=== PATIENT | male | born 1945 | race Caucasian/White ===

== ENCOUNTER 2016-10-31 09:33 | Observation (INO) ==
[2016-10-31] MEDS ORDERED: METOPROLOL TARTRATE 5 MG/5 ML VIAL IV STA (10:01)
[2016-10-31] MEDS ORDERED: ENOXAPARIN 100 MG/ML SYRINGE SUBCUT STA (10:01)
[2016-10-31] MEDS ORDERED: ASPIRIN 325 MG TABLET PO STA (10:01)
[2016-10-31] MEDS ORDERED: NITROGLYCERIN 2% OINT 1 INCH/GM PACK TOP STA (10:01)
[2016-10-31] MEDS ORDERED: NITROGLYCERIN SL 0.4 MG TABLET SL PRN ×2 (10:01→13:01)
[2016-10-31] MEDS ORDERED: ONDANSETRON 4 MG/2 ML VIAL IV PRN (10:01)
[2016-10-31] MEDS ORDERED: MORPHINE 2 MG/1 ML SYRINGE IV PRN (10:01)
--- NOTE | 2016-10-31 10:05 | EKG Report ---
Stationary ECG Study [facility] ER Test Date: 10/31/2016 9:39:57 AM Pat Name: BRADLY MARSH Department: Room: Gender: M Tool Designer: Rupali Singletary : 1945 Requested by: Rad Greer Order Number: [id number] Reading MD: EDDIE MCCULLOUGH Intervals [place] Rate: 80 P: 69 IA: 240 QRS: 99 QRSD: 85 T: 77 QT: 352 QTc: 388 Interpretive Statements SINUS RHYTHM WITH FIRST DEGREE AV BLOCK RIGHT AXIS DEVIATION Electronically Signed On 10-31-16 15:41:27 CDT by EDDIE MCCULLOUGH [email or web address]
--- NOTE | 2016-10-31 10:19 | Emergency Department Note ---
Aman Roberts Hilary, am scribing for, and in the presence of, Rad Pedroza MD 10: 10. Kasia Roberts James D, MD, personally performed the services described in this documentation, ascribed by Jazmín Newton in my presence, and it is both accurate and complete . Arrival - Arrival Chief Complaint: Chest Pain Stated Complaint: Chest pain,shortbreath, weakness left arm ED Nursing Triage Note: C/o intermittent, left side chest pain-onset yesterday afternoon. +SOB. Denies N/V and diaphoresis. Denies pain at this time. Mode of Arrival: Ambulatory Limitations: No Limitations Source: Patient, RN Notes Reviewed Time Seen by Provider: 10/31/16 09:56 - History of Present Illness HPI Narrative: Pt is a 71 y/o white male presenting to the ED with c/o chest pain which onset yesterday. He confirms left sided chest pain, left arm numbness and SOB but denies abdominal pain, N/V or diaphoresis. He states that the past few weeks he has been SOB upon exertion which has gotten increasingly worse. Pt has a PMHx of CAD, HTN, Stent x2, TIA, and NIDDM. No other complaints or problems stated in the ED. Onset (ago): day(s) Consistency: now resolved Severity: moderate Severity scale (1-10): 3 Quality: sharp Allergies/Adverse Reactions: Allergies Allergy/AdvReac Type Severity Reaction Status Date / Time sulfamethoxazole Allergy Intermediate Hypertensio Verified 06/06/15 06:28 [From Bactrim] n trimethoprim [From Bactrim] Allergy Intermediate Hypertensio Verified 06/06/15 06:28 n Penicillins Allergy Mild HIVES Verified 06/06/15 06:28 Home Medications: Home Medications Medication Instructions Recorded Confirmed Type Clopidogrel [Plavix] 75 mg PO DAILY 06/06/15 10/31/16 History Ezetimibe [Zetia] 10 mg PO DAILY 06/06/15 10/31/16 History Metformin HCl 1,000 mg PO BID 06/06/15 10/31/16 History Aspirin [Ecotrin] 81 mg PO DAILY 07/11/15 10/31/16 History Carvedilol [Coreg] 6.25 mg PO BID #60 tablet 07/12/15 10/31/16 Rx Famotidine Tab [Pepcid Tab] 20 mg PO BID #60 tablet 07/12/15 10/31/16 Rx Nitroglycerin Sl Tab [Nitrostat] 0.4 mg SL Q5M PRN #0 tablet 07/12/15 10/31/16 Rx Lisinopril [Prinivil] 20 mg PO DAILY 10/31/16 10/31/16 History Review of System - Review of System 12 point system: reviewed and no additional remarkable complaints except as stated - Review of System Constitutional: Absent: fever Respiratory: Present: respiratory distress (SOB) Cardiovascular: Present: chest pain Gastrointestinal: Absent: abdominal pain, nausea, vomiting Musculoskeletal: Present: arm pain (left arm numbness) Medical,Surgical,& Family Hx - Medical History Cardio: History of: CAD, Hypertension, Cardiovascular Problems (stent times 2 to lad) Neurology: History of: TIA No history of: Seizures Endocrine: History of: Diabetes Mellitus (NIDDM) Gastrointestinal: History of: GERD Musculoskeletal: History of: Musculoskeletal Problems (arthritis) - Surgical History Cardiac Surgeries: Sugical HX of: Cardiac Catheterization (PCI of the proximal LAD) - Family History Family History: Reports;: Family Hypertension Denies;: Family Cancer, Family Diabetes, Family Heart Disease, Family Psychiatric Problems, Family Stroke - Social History Smoking Status: Former smoker (2 pks a day/ 10 years ago) Frequency of Alcohol Use: None Type of Drug Use: None Exam Physical Examination: GENERAL: This is a well-nourished, well-developed in no apparent distress. VITAL SIGNS: Temperature: 97.6 Pulse: 81 Respiratory: 18 Blood Pressure: 167/ 90 O2 Sat: 98 HEENT: Head is normocephalic and atraumatic. Pupils are equally round and reactive to light. Extraocular movement are intact. Oropharynx is benign with moist mucous membranes. NECK: Neck is soft and supple without tenderness. There are no masses. There is no lymphadenopathy. LUNGS: Lungs are clear to auscultation bilaterally. Chest rises symmetrically. There is no chest wall tenderness. CV: Heart is regular rate and rhythm without murmurs, rubs, or gallops. ABDOMEN: Abdomen is soft, non-tender to palpation. There are no abnormal masses palpated. There is no organomegaly. Bowel sounds are present and active. SKIN: Skin is warm and dry. No rash. EXTREMITIES: Patient has full range of motion without tenderness. There is no pedal edema. NEUROLOGIC: Awake, alert, and oriented x4. Cranial nerves II through XII are grossly intact. There are no motorsensory deficits. PSYCHIATRIC: Normal affect. Normal mood. Vital Signs: Vital Signs Temperature 97.6 F 10/31/16 10:12 Pulse Rate 69 10/31/16 11:00 Respiratory Rate 18 10/31/16 11:00 Blood Pressure 144/78 10/31/16 11:00 O2 Sat by Pulse Oximetry 100 10/31/16 11:00 Course - Consultations Consultation #1: Discussed with cardiology. Patient will be seen in the emergency department. Time: 11:07 Results - Labs CBC & BMP: 10/31/16 10:14 10/31/16 10:14 Lab Results: I have reviewed the patients labs Labs: Laboratory Tests 10/31/16 10/31/16 10:14 10:14 WBC 8.5 RBC 4.75 Hgb 14.9 Hct 41.5 L Plt Count 269 Lymph % (Auto) 14.2 L Lymph # (Auto) 1.2 L INR 1.1 PT Patient/Control Mix 11.3 Circ Anticoag PTT 24.0 Laboratory Tests 10/31/16 10:14 Troponin I < 0.015 Laboratory Tests 10/31/16 10:14 Sodium 143 Potassium 3.9 Chloride 108 H Carbon Dioxide 26 BUN 11 Glucose 156 H Total Protein 7.4 - EKG EKG results: interpreted by ERMD - Impressions EKG: Normal sinus rhythm with first-degree AV block, right axis deviation, nonspecific ST-T wave changes. - Diagnostic Findings Procedure: Chest x-ray: image reviewed by me, report reviewed by me (No acute cardiopulmonary process. Parenchymal and pleural scarring in the lung apices) Disposition Clinical Impression: Unstable angina, Coronary artery disease, Essential hypertension, Diabetes mellitus Case discussed with: patient, patient's family Disposition: Still a Patient Condition: Stable Time of Disposition: 11:07
[2016-10-31 10:28] LABS: Basophils % 0.4 % (0.0-0.8); Eosinophils # 0.1 10*3/uL (0.0-0.87); Eosinophils % 1.5 % (0.00-10.9); Hematocrit 41.5 VOL% (42.0-52.0); Hemoglobin 14.9 GM/DL (14.0-18.0); Immature Granulocytes % 0.5 %; Immature Granulocytes Absolute 0.04 #; Lymphocytes # 1.2 10*3/uL (1.4-4.0); Lymphocytes % 14.2 % (21.2-54.2); Mean Corpuscular HGB Conc 35.9 GM/DL (32-36); Mean Corpuscular Hemoglobin 31 PG (27-34); Mean Corpuscular Volume 87.4 FL (87-102); Mean Platelet Volume 9.9 FL (9.6-12.0); Monocytes # 0.8 10*3/uL (0.11-0.8); Monocytes % 9.6 % (1.7-12.7); Neutrophils # 6.3 10*3/uL (1.4-7.4); Neutrophils % 73.8 % (38.7-73.9); Platelet Count 269 T/CUMM (130-400); Red Blood Count 4.75 MC/CUMM (3.8-5.5); Red Cell Distribution Width 13.2 % (9.3-17.3); White Blood Count 8.5 T/CUMM (4-12)
--- NOTE | 2016-10-31 10:29 | XRay Report ---
History: Chest pain Date: 10/31/2016 Study: Chest x-ray PA and lateral Comparison exam: July 21, 2015 The cardiac silhouette is not enlarged. There is no mediastinal mass. The pulmonary vasculature is not engorged. There is some mild parenchymal and pleural scarring in either lung apex. There is no definite acute infiltrate. There is no pleural effusion. Osseous structures are unchanged. Impression: No acute cardiopulmonary process. Parenchymal and pleural scarring in the lung apices PROCEDURE INTERPRETED AT [facility] DEPARTMENT OF RADIOLOGY Final Report Signed by: Dr. Jaelyn Silver
[2016-10-31 10:34] LABS: INR 1.1; PT Patient Result 11.3 SECS
[2016-10-31 11:01] LABS: Albumin 4.1 G/DL (3.4-5.0); Magnesium 1.8 MG/DL (1.8-2.4); Potassium 3.9 MMOL/L (3.5-5.1); Total Protein 7.4 G/DL (6.4-8.3)
[2016-10-31] MEDS ORDERED: ASPIRIN 325 MG TABLET ONE (11:05)
[2016-10-31] MEDS ORDERED: METOPROLOL TARTRATE 5 MG/5 ML VIAL IV ONE (11:05)
[2016-10-31] MEDS ORDERED: NITROGLYCERIN 2% OINT 1 INCH/GM PACK TOP ONE (11:05)
[2016-10-31] MEDS ORDERED: ENOXAPARIN 100 MG/ML SYRINGE SUBCUT ONE (11:05)
[2016-10-31] MEDS ORDERED: ACETAMINOPHEN 325 MG TABLET PO ONE (11:50)
[2016-10-31] MEDS ORDERED: ACETAMINOPHEN 325 MG TABLET ONE (11:53)
[2016-10-31] MEDS ORDERED: MAGNESIUM SULF RIDER 2 GM in PREMIX 1 EACH IV PRN (12:35)
[2016-10-31] MEDS ORDERED: DOCUSATE SODIUM 100 MG CAPSULE PO PRN (12:35)
[2016-10-31] MEDS ORDERED: MAGNESIUM SULF RIDER 4 GM in PREMIX 1 EACH IV PRN (12:35)
[2016-10-31] MEDS ORDERED: ZALEPLON 5 MG CAPSULE PO PRN (12:35)
--- NOTE | 2016-10-31 12:55 | Cardiology History & Physical ---
<Tricia Ballard E - Last Filed: 10/31/16 12:42> Assessment and Plan - Time spent with patient Time spent with patient: Greater than 30 minutes Time spent discussing smoking cessation with patient: 3 to 10 minutes (1) Tobacco abuse, in remission Status: Resolved Assessment and plan: SEE PLAN OF CARE LISTED BELOW Current Visit: Yes (2) Diabetes Status: Chronic Assessment and plan: SEE PLAN OF CARE LISTED BELOW Current Visit: No Qualifiers: Diabetes mellitus type: type 2 Diabetes mellitus complication status: without complication Qualified Code(s): E11.9 - Type 2 diabetes mellitus without complications (3) Dyslipidemia Status: Chronic Assessment and plan: SEE PLAN OF CARE LISTED BELOW Current Visit: No (4) Hypertension Status: Chronic Assessment and plan: SEE PLAN OF CARE LISTED BELOW Current Visit: No (5) Chest pain Status: Resolved Assessment and plan: SEE PLAN OF CARE LISTED BELOW Current Visit: No (6) CAD (coronary artery disease) Status: Chronic Assessment and plan: SEE PLAN OF CARE LISTED BELOW Current Visit: No Qualifiers: Coronary Disease-Associated Artery/Lesion type: [place] artery [place] vs. 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 Aguilera, 71WM, routinely followed by Dr. Mccullough. Last seen in cardiology clinic August 05, 2016. Risk factors include: Known CAD (2015: PCI-ostial /proximal LAD and mid LAD), hypertension, dyslipidemia, diabetes, remote tobaccoism, CVA, and family history of premature coronary artery disease. Patient presented to the ED of [facility] this morning with complaints of chest discomfort, shortness of breath with exertion occurring for the past 3-4 weeks, now worsening in intensity, frequency and duration. Describes chest discomfort as "heaviness across chest" without radiation, accompanied by shortness of breath. For the past 2-3 days, walking room to room causes these symptoms, rest relieves the discomfort after approximately 5 minutes. Not associated with nausea, vomiting or diaphoresis. Rates the discomfort as a 7 on a scale of 1-10, currently chest pain-free. These symptoms are similar to the same type of symptoms he had prior to requiring PCI June 2015. Cardiac biomarkers are negative, EKG is unchanged from August 05, 2016 EKG. Patient has received Aspirin, Lovenox 90 mg SQ at 10 AM, beta-blockade and nitrates. He is NPO. I will further discuss with Dr. Solis and await additional recommendations. Suspect patient may require cardiac catheterization so I will keep him NPO at this time. ASSESSMENT/PLAN: 1. ANGINA - currently chest pain-free. This is not NSTEMI. Has received appropriate cocktail of medications. Keeping NPO for further orders 2. KNOWN CAD - S/P PCI ostial/proximal LAD, mid-LAD June 2015. Continue Aspirin and Plavix without interruption 3. HYPERTENSION - usually well controlled. I will adjust medications accordingly during hospital stay 4. DYSLIPIDEMIA - continue lipid-lowering agent. Fasting lipid profile in the morning. 5. DIABETES - holding Metformin and will cover with sliding scale 6. REMOTE TOBACCOISM - greater than 5 minutes was spent today discussing the continued merits of tobacco cessation (has not smoked in 10 years). 7. FAMILY HISTORY OF PREMATURE CAD - continue current plan of care 8. CVA FEBRUARY 2017 -etiology undetermined, carotid ultrasound normal. Previously saw Dr. Christianson. No reoccurrence. Home Medications Medication Instructions Recorded Confirmed Type Clopidogrel [Plavix] 75 mg PO DAILY 06/06/15 10/31/16 History Ezetimibe [Zetia] 10 mg PO DAILY 06/06/15 10/31/16 History Metformin HCl 1,000 mg PO BID 06/06/15 10/31/16 History Aspirin [Ecotrin] 81 mg PO DAILY 07/11/15 10/31/16 History Carvedilol [Coreg] 6.25 mg PO BID #60 tablet 07/12/15 10/31/16 Rx Famotidine Tab [Pepcid Tab] 20 mg PO BID #60 tablet 07/12/15 10/31/16 Rx Nitroglycerin Sl Tab [Nitrostat] 0.4 mg SL Q5M PRN #0 tablet 07/12/15 10/31/16 Rx Lisinopril [Prinivil] 20 mg PO DAILY 10/31/16 10/31/16 History Allergies Allergy/AdvReac Type Severity Reaction Status Date / Time sulfamethoxazole Allergy Intermediate Hypertensio Verified 06/06/15 06:28 [From Bactrim] n trimethoprim [From Bactrim] Allergy Intermediate Hypertensio Verified 06/06/15 06:28 n Penicillins Allergy Mild HIVES Verified 06/06/15 06:28 Review of systems: REVIEW OF SYSTEMS: - Constitutional Constitutional: Present: Fatigue. Absent: syncope, anorexia, night sweats - EENT Eyes: Absent: blurry vision, loss of vision, diplopia Ears: Absent: ear pain, ear discharge. Present: Mild hearing loss - Cardiovascular Cardiovascular: Present: chest pain with exertion, dyspnea on exertion. Denies edema, palpitations. Absent: chest pain with deep breath, claudication - Respiratory Respiratory: Present: RODRIGUEZ, denies cough. Absent: wheezing, hemoptysis, change in phlegm color - Gastrointestinal Gastrointestinal: Denies: constipation. Absent: abdominal pain, hematemesis, hematochezia, melena, change in bowel habits, nausea - Genitourinary Genitourinary: Absent: difficulty urinating, dysuria, urinary hesitancy, flank pain - Musculoskeletal Musculoskeletal: Present: back pain, left shoulder and arm pain and numbness. Absent: joint swelling, muscle cramps, muscle weakness - Neurological Neurological: Present: normal gait without frequent falls. Absent: dizziness, hemiparesis - Psychiatric Psychiatric: Absent: anxiety, depression, difficulty concentrating - Endocrine Endocrine: Absent: cold intolerance, heat intolerance, polyuria, polyphagia, polydipsia - Hematologic/Lymphatic Hematologic/Lymphatic: Present: easy bruising. Absent: easy bleeding -Integumentary Integumentary: Absent: lesions, rashes, skin breakdown Medical,Surgical,& Family Hx - Medical History Cardio: History of: CAD, Hypertension, Cardiovascular Problems (stent times 2 to lad) No history of: Cardiac Dysrhythmia Neurology: History of: TIA No history of: Seizures Endocrine: History of: Diabetes Mellitus (NIDDM) Gastrointestinal: History of: GERD Musculoskeletal: History of: Musculoskeletal Problems (arthritis) - Surgical History Cardiac Surgeries: Sugical HX of: Cardiac Catheterization (PCI of the proximal LAD) - Family History Family History: Reports;: Family Hypertension Denies;: Family Cancer, Family Diabetes, Family Heart Disease, Family Psychiatric Problems, Family Stroke - Social History Smoking Status: Former smoker (2 pks a day/ 10 years ago) Have you smoked in the last 12 months: No Time spent discussing smoking cessation with patient: 3 to 10 minutes Frequency of Alcohol Use: None Type of Drug Use: None Functional capacity: uses cane/walker Cardiology Physical Exam - Constitutional Vitals: Vital Signs Temp Pulse Resp BP Pulse Ox 97.6 F 69 27 H 130/81 100 10/31/16 10:12 10/31/16 12:00 10/31/16 12:00 10/31/16 12:00 10/31/16 12:00 Intake and Output 10/30/16 10/31/16 10/31/16 23:59 07:59 15:59 Other: Weight 86.636 kg Patient Weight 10/31/16 23:59 Weight 86.636 kg Exam: General: [Appears well with no apparent distress.] [Pleasant and cooperative. ] [Appears comfortable.] HEENT: [PERRL, normocephalic, atraumatic. Mucous membranes moist. No jaundice noted. Conjunctiva moist and clear, sclerae anicteric] Neck: No JVD/HJR, no thyromegaly or lymphadenopathy noted. No carotid bruit appreciated Cardiac: [Regular rate and rhythm.] [No murmur rub or gallop.] Lungs: [Clear to auscultation without accessory muscle use to assist the respiratory pattern.] Using oxygen intermittently Abdomen: Soft, bowel sounds normoactive. Nontender and nondistended. No abdominal bruit or thrill noted. No masses noted. Musculoskeletal: No fluid collection. Decreased range of motion is noted. Extremities: No clubbing, cyanosis noted. [ No edema noted.] Upper extremity pulses 2+. Lower extremity pulses 2+. Capillary refill less than 3 seconds. Skin: No unusual lesions or rashes. No skin breakdown appreciated. Neuro: Awake, alert and oriented 3. Moves all extremities well without hemiparesis or paralysis. No essential tremor is appreciated. Result/EKG - Labs CBC & BMP: 10/31/16 10:14 10/31/16 10:14 Lab Results: I have reviewed the past 24 hour labs Labs: Laboratory Results - last 24 hr 10/31/16 10/31/16 10/31/16 10:14 10:14 10:14 WBC RBC Hgb Hct MCV MCH MCHC RDW Plt Count MPV Neut % (Auto) Lymph % (Auto) [place] % (Auto) Eos % (Auto) Baso % (Auto) Neut # (Auto) Lymph # (Auto) [place] # (Auto) Eos # (Auto) Baso # (Auto) Immature Gran % Nucleated RBC % Immature Gran # Nucleated RBCs # INR 1.1 PT Patient/Control Mix 11.3 Circ Anticoag PTT 24.0 Sodium 143 Potassium 3.9 Chloride 108 H Carbon Dioxide 26 Anion Gap 12.9 BUN 11 Creatinine 1.00 GFR Calculation 92 BUN/Creatinine Ratio 11.00 Glucose 156 H Calculated Osmolality 286.0 Calcium 9.0 Magnesium 1.8 Total Bilirubin 1.00 AST 21 ALT 35 Alkaline Phosphatase 80 Troponin I < 0.015 Total Protein 7.4 Albumin 4.1 Globulin 3.3 Albumin/Globulin Ratio 1.2 Lipase 189.0 10/31/16 10:14 WBC 8.5 RBC 4.75 Hgb 14.9 Hct 41.5 L MCV 87.4 MCH 31 MCHC 35.9 RDW 13.2 Plt Count 269 MPV 9.9 Neut % (Auto) 73.8 Lymph % (Auto) 14.2 L [place] % (Auto) 9.6 Eos % (Auto) 1.5 Baso % (Auto) 0.4 Neut # (Auto) 6.3 Lymph # (Auto) 1.2 L [place] # (Auto) 0.8 Eos # (Auto) 0.1 Baso # (Auto) 0.0 Immature Gran % 0.5 Nucleated RBC % 0.0 Immature Gran # 0.04 Nucleated RBCs # 0.00 INR PT Patient/Control Mix Circ Anticoag PTT Sodium Potassium Chloride Carbon Dioxide Anion Gap BUN Creatinine GFR Calculation BUN/Creatinine Ratio Glucose Calculated Osmolality Calcium Magnesium Total Bilirubin AST ALT Alkaline Phosphatase Troponin I Total Protein Albumin Globulin Albumin/Globulin Ratio Lipase - Diagnostic Findings Procedure: Chest x-ray: report reviewed by md - EKG EKG results: interpreted by md EKG shows: sinus rhythm <Michael Solis - Last Filed: 10/31/16 13:46> History of Present Illness History of present illness: Cardiology addendum Patient examined and chart reviewed. One-month history of exertional angina. Last cardiac cath June 06, 2015 with ostial and mid LAD stents. Circumflex had mild disease only. Right coronary was large and ectatic with 2 areas of moderate stenosis at the crux. LV gram not done to conserve dye. EKG normal. Creatinine 1.0. Patient takes his medications faithfully. Plan Cardiac cath Cardiology Physical Exam - Constitutional Vitals: Vital Signs Temp Pulse Resp BP Pulse Ox 97.5 F L 80 18 149/86 98 10/31/16 13:24 10/31/16 13:24 10/31/16 13:24 10/31/16 13:24 10/31/16 13:24 Intake and Output 10/30/16 10/31/16 10/31/16 23:59 07:59 15:59 Other: Weight 86.636 kg Patient Weight 10/31/16 23:59 Weight 86.636 kg Result/EKG - Labs CBC & BMP: 10/31/16 10:14 10/31/16 10:14 Labs: Laboratory Results - last 24 hr 10/31/16 10/31/16 10/31/16 10:14 10:14 10:14 WBC RBC Hgb Hct MCV MCH MCHC RDW Plt Count MPV Neut % (Auto) Lymph % (Auto) [place] % (Auto) Eos % (Auto) Baso % (Auto) Neut # (Auto) Lymph # (Auto) [place] # (Auto) Eos # (Auto) Baso # (Auto) Immature Gran % Nucleated RBC % Immature Gran # Nucleated RBCs # INR 1.1 PT Patient/Control Mix 11.3 Circ Anticoag PTT 24.0 Sodium 143 Potassium 3.9 Chloride 108 H Carbon Dioxide 26 Anion Gap 12.9 BUN 11 Creatinine 1.00 GFR Calculation 92 BUN/Creatinine Ratio 11.00 Glucose 156 H Calculated Osmolality 286.0 Calcium 9.0 Magnesium 1.8 Total Bilirubin 1.00 AST 21 ALT 35 Alkaline Phosphatase 80 Troponin I < 0.015 Total Protein 7.4 Albumin 4.1 Globulin 3.3 Albumin/Globulin Ratio 1.2 Lipase 189.0 10/31/16 10:14 WBC 8.5 RBC 4.75 Hgb 14.9 Hct 41.5 L MCV 87.4 MCH 31 MCHC 35.9 RDW 13.2 Plt Count 269 MPV 9.9 Neut % (Auto) 73.8 Lymph % (Auto) 14.2 L [place] % (Auto) 9.6 Eos % (Auto) 1.5 Baso % (Auto) 0.4 Neut # (Auto) 6.3 Lymph # (Auto) 1.2 L [place] # (Auto) 0.8 Eos # (Auto) 0.1 Baso # (Auto) 0.0 Immature Gran % 0.5 Nucleated RBC % 0.0 Immature Gran # 0.04 Nucleated RBCs # 0.00 INR PT Patient/Control Mix Circ Anticoag PTT Sodium Potassium Chloride Carbon Dioxide Anion Gap BUN Creatinine GFR Calculation BUN/Creatinine Ratio Glucose Calculated Osmolality Calcium Magnesium Total Bilirubin AST ALT Alkaline Phosphatase Troponin I Total Protein Albumin Globulin Albumin/Globulin Ratio Lipase
[2016-10-31] MEDS ORDERED: SODIUM CHLORIDE 0.9% 1,000 ML IV SCH (13:00)
--- NOTE | 2016-10-31 13:42 | EKG Report ---
Stationary ECG Study [facility] Test Date: 10/31/2016 1:42:09 PM Pat Name: BRADLY MARSH Department: Room: 267 Gender: M Loom Operator: YOSEPH : 1945 Requested by: Rad Greer Order Number: [id number] Reading MD: EDDIE MCCULLOUGH Intervals [place] Rate: 76 P: 61 MI: 250 QRS: 102 QRSD: 86 T: 81 QT: 368 QTc: 398 Interpretive Statements SINUS RHYTHM WITH PROLONGED [place] INTERVAL RIGHT AXIS DEVIATION Electronically Signed On 10-31-16 15:58:39 CDT by EDDIE MCCULLOUGH [email or web address]
[2016-10-31] MEDS ORDERED: DIAZEPAM 5 MG TABLET PO ONE (13:49)
[2016-10-31] MEDS ORDERED: diphenhydrAMINE CAP 50 MG CAPSULE PO ONE (13:49)
[2016-10-31] MEDS ORDERED: HEPARIN/NACL 0.9% 2 UNITS/ML 1,000 ML IV ONE (13:56)
[2016-10-31] MEDS ORDERED: LIDOCAINE 1% 20 ML VIAL ONE (13:56)
[2016-10-31] MEDS ORDERED: fentaNYL 100 MCG/2 ML VIAL ONE (14:14)
[2016-10-31] MEDS ORDERED: MIDAZOLAM 2 MG/2 ML VIAL ONE ×2 (14:14→14:25)
[2016-10-31] MEDS ORDERED: VERAPAMIL 5 MG/2 ML VIAL ONE (14:14)
[2016-10-31] MEDS ORDERED: NITROGLYCERIN DRIP 50 MG/250 ML BOTTLE IV ONE (14:14)
--- NOTE | 2016-10-31 14:14 | History and Physical Update ---
Sedation H&P Update - History and Physical H&P was reviewed, the patient examined and there: are no changes in the patients condition since last H&P was completed. - Dictation Physical: refer to scanned H&P - Physical Exam Mental Status: alert and oriented Heart: regular rate and rhythm Lung: clear to auscultation Abdomen: within normal limits Vitals: within normal limits - Sedation Plan for Sedation: moderate Patient Consent: Procedure disscussed with patient and patinet has consented., Risks and benefits were discussed with patient,including infection,, bleeding, injury to surrounding structures, seizure, temporary nerve, Patient understands and accepts potential risks/benefits and agrees to, proceed. ASA Class: III Airway Assessment: Class II: Soft palate, uvula, fauces visible
[2016-10-31] MEDS ORDERED: diphenhydrAMINE 50 MG/1 ML VIAL ONE (14:24)
[2016-10-31] MEDS ORDERED: ENOXAPARIN 60 MG/0.6 ML SYRINGE ONE (14:35)
[2016-10-31] MEDS ORDERED: CLOPIDOGREL 300 MG TABLET ONE (14:59)
[2016-10-31] MEDS ORDERED: CLOPIDOGREL 300 MG TABLET PO ONE (15:06)
--- NOTE | 2016-10-31 15:16 | Cardiac Catheterization ---
Date of Procedure:: 10/31/16 Pre-op Diagnosis: Unstable angina, crescendo class IV (angina at rest) Post-op diagnosis: other (Unstable angina secondary to high-grade proximal RCA stenosis) Procedure: Procedures: 1. Left heart catheterization resting hemodynamics 2. Selective left and right coronary angiography 3. Percutaneous coronary region of the proximal right coronary artery with a 4.5 x 13 mm ultra vision bare-metal stent postdilated to 18 camacho with a 5.0 x 12 mm NC Quantum balloon. After signed an informed consent was obtained, the patient was prepped and draped in standard fashion for right radial access. Time out was recorded. 0.5 mL of 1% lidocaine were infiltrated in the skin and subcutaneous tissue overlying the right radial artery and Seldinger technique was utilized with a Angiocath to obtain access to the right radial artery. A [id number] glide wire was then advanced into the midforearm under fluoroscopic guidance. The Angiocath was removed and a 6 Romanian Terumo glide sheath was placed over the Glidewire. The sheath was aspirated and flushed and then 5 mg of verapamil and 200 g of nitroglycerin were given through the sheath. At this time an 035 J-wire was used to guide a Shepherd 6 Romanian catheter into the central aorta across the aortic valve and into the ventricle. Pressure measurements and pullback measurements were obtained. The Shepherd catheter was then used to engage the left main coronary artery and multiple orthogonal views of the left system were obtained. The catheter then was torqued into the right coronary artery and orthogonal views of the right system were obtained. The catheter was then exchanged over the wire. The sheath was aspirated and flushed. Shell Machine Operator reviewed the films and room was set up for intervention mode. The received patient received 90 mg of subcu Lovenox approximately 5 hours prior to the intervention. He is given additional 40 mill grams IV Lovenox this is all on the background of daily stable clopidogrel therapy. At this time an AL 0.75 catheter was advanced over the wire in the central aorta and the right coronary was selectively engaged. This time a 180 cm pro-water wire was advanced into the proximal portion of the vessel and a 3.5 x 8 mm apex balloon was used to further advance the wire for support. The balloon was then pulled back to the lesion and inflated to 14 camacho. There was a sickly no change in angiographic result. The balloon was removed and a 4.5 x 13 mm ultra stent was placed over the area of high-grade stenosis and inflated very slowly to 14 camacho and held for 23 seconds. The stent balloon was removed and a 5.0 x 12 mm NC Quantum balloon was taken to the inside the stent and inflated to rated burst pressure of 18 camacho. There is acceptable angiographic results. Multiple orthogonal views were obtained the wire was removed additional orthogonal views were obtained the cath was exchanged over the wire. Sheath was aspirated and flushed. The basket machine operator reviewed the films. And a TR band was placed over the glide sheath and used for hemostasis. Total contrast exposure 143 cc of omnipaque Total x-ray exposure: 8.4 min fluoroscopy time and 519 mGy air Kerma Findings: 1. EF no assessed 2. Hemodynamics LV: 122/0 EDP:6 Ao:99/46 3. Left main: Angiographically normal 4: Left anterior descending artery: Previously deployed stent the proximal vessel have minimal lumen loss with stenosis remainder vessels unchanged. There is diffuse disease in a small diagonal. 5: Left circumflex artery: Is a nondominant vessel. Has minimal luminal irregularities 6: Right coronary artery: This is a very large dominant vessel that has changed from his previous angiogram approximately 17 months ago there is an downward takeoff from the right coronary cusp is slightly anteriorly there is mild or ostial disease. The proximal segment there is a high-grade stenosis in a very large segment of the vessel is approximately 80% stenosed. More distally there is an area of approximately 40% stenosis just before the mid segment of the AV groove portion of right coronary artery there is mild disease at the crux of the PDA but is not hemodynamically significant remainder of the PDA and posterior lateral branch are unremarkable. Assessment: 1. Unstable angina secondary to high-grade proximal RCA stenosis with excellent angiographic results with pre-stenosis of greater than 80% and post stenosis less than 10%. Bare-metal stent was placed due to the size of the vessel. 2. Normal resting hemodynamics Plan: 1. Therapeutic lifestyle changes. 2. Cardiac rehabilitation 3. Continue dual antiplatelet therapy 4. Return to telemetry for TR band time anticipate discharge in the next 24 hours if stable. Implants: 4.5 x 13 mm Ultra stent in the proximal RCA Anesthesia: moderate conscious sedation Surgeon / Physician: Mary Ann Gonzalez Senior Database Engineer: none Estimated blood loss: none Specimens: none sent Condition: stable Disposition: floor - Medications / Follow-up
--- NOTE | 2016-10-31 16:53 | EKG Report ---
Stationary ECG Study [facility] Test Date: 10/31/2016 4:55:53 PM Pat Name: BRADLY MARSH Department: Room: 267 Gender: M [employer] Supervisor: : 1945 Requested by: Rad Greer Order Number: [id number] Reading MD: WHIT GARRISON Intervals [place] Rate: 63 P: 55 CA: 258 QRS: 99 QRSD: 91 T: 79 QT: 389 QTc: 396 Interpretive Statements SINUS RHYTHM WITH PROLONGED CA INTERVAL BORDERLINE RIGHT AXIS DEVIATION POSSIBLE RIGHT VENTRICULAR CONDUCTION DELAY Electronically Signed On 11-01-16 11:45:45 CDT by WHIT GARRISON [email or web address]
--- NOTE | 2016-10-31 18:11 | ECHO Report ---
Sreedhar Aguilera Exam Date: 10/31/2016 15:54 Referring Physician: Technologist: Chantel Chou RDCS Age: 71 Ht (in): 73 Wt (lb): 191 Gender: M Exam Location: [facility] Echo Indications: Chest pain, unspecified, Shortness of breath, Weakness, NIDDM, Chronic fatigue, unspecified, Dyslipidemia, CAD with previous stent BP: 130 / 81 HR: 65 Rhythm: Sinus Technical Quality: Fair IMPRESSIONS EF 55 % Grade I/IV diastolic dysfunction (abnormal relaxation filling pattern), normal to mildly elevated filling pressures. The right ventricle is normal in size and function. The right atrium is mildly enlarged. The left atrium is mildly enlarged. Mitral valve sclerosis. No mitral valve regurgitation. Aortic valve sclerosis. No aortic valve regurgitation. Mild tricuspid valve regurgitation. PAP40 mmHg. Pulmonic valve not well visualized. Normal pericardium without effusion. Normal ascending aorta dimension. MEASUREMENTS (Male / Female) Normal Values 2D ECHO LV Diastolic Diameter PLAX 4.3 cm 4.2 - 5.9 / 3.9 - 5.3 cm LV Systolic Diameter PLAX 3.2 cm LV Fractional Shortening PLAX 24.8 % IVS Diastolic Thickness 0.8 cm 0.6 - 1.0 / 0.6 - 0.9 cm LVPW Diastolic Thickness 0.9 cm 0.6 - 1.0 / 0.6 - 0.9 cm RV Internal Dim ED PLAX 2.9 cm Aortic Root Diameter 3.6 cm LA Systolic Diameter LX 3.9 cm 3.0 - 4.0 / 2.7 - 3.8 cm DOPPLER TR Peak Velocity 255.0 cm/s TR Peak Gradient 26.0 mmHg FINDINGS Left Ventricle EF 55 % . Grade I/IV diastolic dysfunction (abnormal relaxation filling pattern), normal to mildly elevated filling pressures. Right Ventricle The right ventricle is normal in size and function. Right Atrium The right atrium is mildly enlarged. Left Atrium The left atrium is mildly enlarged. Mitral Valve Mitral valve sclerosis. No mitral valve regurgitation. Aortic Valve Aortic valve sclerosis. No aortic valve regurgitation. Tricuspid Valve Morphologically normal tricuspid valve. Mild tricuspid valve regurgitation. PAP40 mmHg. Pulmonic Valve Pulmonic valve not well visualized. Pericardium Normal pericardium without effusion. Aorta Normal ascending aorta dimension. Axel Solis (Electronically Signed) Final Date: 31 October 2016 18:10
[2016-10-31] MEDS: CARVEDILOL 6.25 MG TABLET PO SCH (20:44)
[2016-11-01 05:12] LABS: Basophils % 0.3 % (0.0-0.8); Eosinophils # 0.2 10*3/uL (0.0-0.87); Eosinophils % 3.4 % (0.00-10.9); Hematocrit 36.7 VOL% (42.0-52.0); Hemoglobin 13.2 GM/DL (14.0-18.0); Immature Granulocytes % 0.4 %; Immature Granulocytes Absolute 0.03 #; Lymphocytes # 1.2 10*3/uL (1.4-4.0); Lymphocytes % 17.4 % (21.2-54.2); Mean Corpuscular Hemoglobin 32 PG (27-34); Mean Corpuscular Volume 87.8 FL (87-102); Mean Platelet Volume 10.2 FL (9.6-12.0); Monocytes # 0.8 10*3/uL (0.11-0.8); Monocytes % 11.1 % (1.7-12.7); Neutrophils # 4.8 10*3/uL (1.4-7.4); Neutrophils % 67.4 % (38.7-73.9); Platelet Count 199 T/CUMM (130-400); Red Blood Count 4.18 MC/CUMM (3.8-5.5); Red Cell Distribution Width 13.2 % (9.3-17.3); White Blood Count 7.1 T/CUMM (4-12)
[2016-11-01 05:47] LABS: Albumin 3.3 G/DL (3.4-5.0); Bilirubin,Total 1.2 MG/DL (0.2-1.0); Calcium 8.4 MG/DL (8.5-10.1); Potassium 3.6 MMOL/L (3.5-5.1); Risk Ratio 4.85; Total Protein 6.1 G/DL (6.4-8.3); VLDL CHOLESTEROL 52.6 MG/DL
--- NOTE | 2016-11-01 07:47 | Cardiology Progress Note ---
Cardiology - PN: Subj Interval history: Cardiology note Day 1 status post proximal RCA stent. LAD stent sites remain patent. Circumflex has mild disease only. No pain. Telemetry has been benign. Blood pressure 142/78 in the left arm by me. Right radial site looks good no hematoma Lab data today White count 7.1 hemoglobin 13.2 hematocrit 36.7 Sodium 144 potassium 3.6 chloride 109 CO2 29 BUN 9 creatinine 0.80 Glucose 221 Plan Home today Aspirin 81 mg daily and Plavix 75 mg daily Zetia 10 mg daily Restart metformin tomorrow Office visit with Dr. Woodward in 2 weeks Exam (Progress Note) - Constitutional Vitals: Period Temp Pulse Resp BP Sys/Barajas Pulse Ox Last 24 Hr 97.5 F-98.6 F 64-81 15-27 130-183/74-93 97-100 Result/EKG - Labs CBC & BMP: 11/01/16 04:22 11/01/16 04:22 Labs: Laboratory Results - last 24 hr 10/31/16 10/31/16 10/31/16 10:14 10:14 10:14 WBC RBC Hgb Hct MCV MCH MCHC RDW Plt Count MPV Neut % (Auto) Lymph % (Auto) [place] % (Auto) Eos % (Auto) Baso % (Auto) Neut # (Auto) Lymph # (Auto) [place] # (Auto) Eos # (Auto) Baso # (Auto) Immature Gran % Nucleated RBC % Immature Gran # Nucleated RBCs # INR 1.1 PT Patient/Control Mix 11.3 Circ Anticoag PTT 24.0 Sodium 143 Potassium 3.9 Chloride 108 H Carbon Dioxide 26 Anion Gap 12.9 BUN 11 Creatinine 1.00 GFR Calculation 92 BUN/Creatinine Ratio 11.00 Glucose 156 H POC Glucose Calculated Osmolality 286.0 Calcium 9.0 Magnesium 1.8 Total Bilirubin 1.00 AST 21 ALT 35 Alkaline Phosphatase 80 Troponin I < 0.015 Total Protein 7.4 Albumin 4.1 Globulin 3.3 Albumin/Globulin Ratio 1.2 Triglycerides Cholesterol LDL Cholesterol VLDL Cholesterol HDL Cholesterol Heart Disease Risk Ratio Lipase 189.0 10/31/16 10/31/16 11/01/16 10:14 16:57 04:22 WBC 8.5 7.1 RBC 4.75 4.18 Hgb 14.9 13.2 L Hct 41.5 L 36.7 L MCV 87.4 87.8 MCH 31 32 MCHC 35.9 36.0 RDW 13.2 13.2 Plt Count 269 199 D MPV 9.9 10.2 Neut % (Auto) 73.8 67.4 Lymph % (Auto) 14.2 L 17.4 L [place] % (Auto) 9.6 11.1 Eos % (Auto) 1.5 3.4 Baso % (Auto) 0.4 0.3 Neut # (Auto) 6.3 4.8 Lymph # (Auto) 1.2 L 1.2 L [place] # (Auto) 0.8 0.8 Eos # (Auto) 0.1 0.2 Baso # (Auto) 0.0 0.0 Immature Gran % 0.5 0.4 Nucleated RBC % 0.0 0.0 Immature Gran # 0.04 0.03 Nucleated RBCs # 0.00 0.00 INR PT Patient/Control Mix Circ Anticoag PTT Sodium Potassium Chloride Carbon Dioxide Anion Gap BUN Creatinine GFR Calculation BUN/Creatinine Ratio Glucose POC Glucose Calculated Osmolality Calcium Magnesium Total Bilirubin AST ALT Alkaline Phosphatase Troponin I < 0.015 Total Protein Albumin Globulin Albumin/Globulin Ratio Triglycerides Cholesterol LDL Cholesterol VLDL Cholesterol HDL Cholesterol Heart Disease Risk Ratio Lipase 11/01/16 11/01/16 04:22 07:21 WBC RBC Hgb Hct MCV MCH MCHC RDW Plt Count MPV Neut % (Auto) Lymph % (Auto) [place] % (Auto) Eos % (Auto) Baso % (Auto) Neut # (Auto) Lymph # (Auto) [place] # (Auto) Eos # (Auto) Baso # (Auto) Immature Gran % Nucleated RBC % Immature Gran # Nucleated RBCs # INR PT Patient/Control Mix Circ Anticoag PTT Sodium 143 Potassium 3.6 Chloride 109 H Carbon Dioxide 25 Anion Gap 12.6 BUN 9 Creatinine 0.80 GFR Calculation 110 BUN/Creatinine Ratio 11.00 Glucose 105 POC Glucose 221 H Calculated Osmolality 283.0 Calcium 8.4 L Magnesium Total Bilirubin 1.20 H AST 14 ALT 26 Alkaline Phosphatase 63 Troponin I Total Protein 6.1 L Albumin 3.3 L Globulin 2.8 Albumin/Globulin Ratio 1.1 Triglycerides 263 H Cholesterol 160 LDL Cholesterol 88.0 VLDL Cholesterol 52.6 HDL Cholesterol 33 L Heart Disease Risk Ratio 4.85 Lipase Quality Measures - VTE Contraindication to Pharmacological VTE Prophylaxis: Already on Theraputic Agent , No Prophylaxis Needed Specialty Discharge - Follow Up or Referrals
[2016-11-01 07:56] VITALS: BP 146/76
--- NOTE | 2016-11-01 08:29 | Discharge Summary ---
Hospital Course - Hospital Course Hospital Course: SALES ADMINISTRATOR: DR. MCCULLOUGH Mr. Aguilera, 71WM, routinely followed by Dr. Mccullough. Last seen in cardiology clinic August 05, 2016. Risk factors include: Known CAD (2015: PCI-ostial /proximal LAD and mid LAD), hypertension, dyslipidemia, diabetes, remote tobaccoism, CVA, and family history of premature coronary artery disease. Patient presented to the ED of [facility] October 31, 2016 with complaints of chest discomfort, shortness of breath with exertion occurring for the past 3-4 weeks, now worsening in intensity, frequency and duration. Symptoms were concerning for angina. Cardiac biomarkers were negative, EKG unchanged from August 05, [address] Mccullough took patient to the cardiac catheterization lab with the following as noted: Findings: 1. EF no assessed 2. Hemodynamics LV: 122/0 EDP:6 Ao:99/46 3. Left main: Angiographically normal 4: Left anterior descending artery: Previously deployed stent the proximal vessel have minimal lumen loss with stenosis remainder vessels unchanged. There is diffuse disease in a small diagonal. 5: Left circumflex artery: Is a nondominant vessel. Has minimal luminal irregularities 6: Right coronary artery: This is a very large dominant vessel that has changed from his previous angiogram approximately 17 months ago there is an downward takeoff from the right coronary cusp is slightly anteriorly there is mild or ostial disease. The proximal segment there is a high-grade stenosis in a very large segment of the vessel is approximately 80% stenosed. More distally there is an area of approximately 40% stenosis just before the mid segment of the AV groove portion of right coronary artery there is mild disease at the crux of the PDA but is not hemodynamically significant remainder of the PDA and posterior lateral branch are unremarkable. Assessment: 1. Unstable angina secondary to high-grade proximal RCA stenosis with excellent angiographic results with pre-stenosis of greater than 80% and post stenosis less than 10%. Bare-metal stent was placed due to the size of the vessel. 2. Normal resting hemodynamics He tolerated the procedure well without complication and was returned to our telemetry unit in stable condition. Overnight, patient has done well. No chest pain, heaviness or tightness. Right radial access site free of hematoma or bruit. Radial pulse 2+, capillary refill less than 3 seconds. Patient has been ambulating without difficulty and he is anxious for release home. Having felt he met maximal medical therapy, patient is being discharged home in stable condition. Patient's glucose is mildly elevated. He has a history of diabetes followed by Dr. Wolfe and he will follow-up outpatient for further management. Patient has been given a follow-up appoint with Dr. Woodward in approximately 2 weeks. At that visit the following will be obtained, BMP, magnesium, CBC, EKG. Discharge medications will include the following: Aspirin 81 mg orally daily Plavix 75 mg orally daily Coreg 6.25 mg orally twice daily Zetia 10 mg orally daily. In the past, patient complains of myalgias on statins and this may be incorporated outpatient as able. Nitroglycerin sublingual as needed for chest pain. Lisinopril 20 mg orally daily Metformin HCL 1000 g orally twice daily, restart FridayNovember 02, 2016 Cardiology addendum Status post RCA stent Patent LAD stents Home today. Medications as outlined Patient had myalgias with Lipitor and Zocor and Dr. Woodward will try another statin as an outpatient - Time spent with patient Time with patient DS: Greater than 30 minutes Diagnosis - Discharge Diagnosis (1) Tobacco abuse, in remission Status: Resolved (2) Diabetes Status: Chronic (3) Dyslipidemia Status: Chronic (4) Hypertension Status: Chronic (5) Chest pain Status: Resolved (6) CAD (coronary artery disease) Status: Chronic (7) Diabetes mellitus Status: Chronic Specialty Discharge - Follow Up or Referrals Follow up with: Mary Ann Mccullough DO [Physician] - 11/18/16 10:00 am (BMP, Mg, CBC, EKG 9:40 lab work ) Discharge Plan - Discharge Data Disposition: Disch To Home/Self Care Condition at Discharge: Stable Discharge Diet: heart healthy Activity: other (Post cath expectations) Hygiene: other (Post cath expectations) Weight Bearing at Discharge: other (Post cath expectations) Driving: other (Post cath expectations) Contact your physician if you experience:: fever over 101, Difficulty voiding, Redness or swelling, Nausea/Vomiting, Shortness of breath, Bleeding, pain uncontrolled by pain medications - Discharge Medications Continue Ezetimibe [Zetia] 10 mg PO DAILY Metformin HCl 1,000 mg PO BID Clopidogrel [Plavix] 75 mg PO DAILY Aspirin [Ecotrin] 81 mg PO DAILY Carvedilol [Coreg] 6.25 mg PO BID #60 tablet Nitroglycerin Sl Tab [Nitrostat] 0.4 mg SL Q5M PRN #0 tablet PRN Reason: Chest Pain Famotidine Tab [Pepcid Tab] 20 mg PO BID #60 tablet Lisinopril [Prinivil] 20 mg PO DAILY - Follow Up or Referral Follow Up: Mary Ann Mccullough DO [Physician] - 11/18/16 10:00 am (BMP, Mg, CBC, EKG 9:40 lab work ) - Forms/Instructions Instructions: Left Heart Catheterization (DC), Heart Healthy Diet (GEN), Coronary Intravascular Stent Placement (DC), [place] [facility] Cardiac Catheterization Instructions -Radial Artery Exam - Constitutional Vitals: Period Temp Pulse Resp BP Sys/Barajas Pulse Ox Last 24 Hr 97.5 F-98.6 F 64-81 15-27 130-183/74-93 97-100 Exam: General: [Appears well with no apparent distress.] [Pleasant and cooperative. ] [Appears comfortable.] HEENT: [PERRL, normocephalic, atraumatic. Mucous membranes moist. No jaundice noted. Conjunctiva moist and clear, sclerae anicteric] Neck: No JVD/HJR, no thyromegaly or lymphadenopathy noted. No carotid bruit appreciated Cardiac: [Regular rate and rhythm.] [No murmur rub or gallop.] Lungs: [Clear to auscultation without accessory muscle use to assist the respiratory pattern.] Not requiring oxygen Abdomen: Soft, bowel sounds normoactive. Nontender and nondistended. No abdominal bruit or thrill noted. No masses noted. Musculoskeletal: No fluid collection. Decreased range of motion is noted. Extremities: No clubbing, cyanosis noted. [ No edema noted.] Upper extremity pulses 2+, right radial access site free of hematoma or bruit. Lower extremity pulses 2+. Capillary refill less than 3 seconds. Skin: No unusual lesions or rashes. No skin breakdown appreciated. Neuro: Awake, alert and oriented 3. Moves all extremities well without hemiparesis or paralysis. No essential tremor is appreciated. Discharge Results Labs on day of discharge: Labs from last 24 hours 11/01/16 11/01/16 11/01/16 07:21 04:22 04:22 WBC 7.1 RBC 4.18 Hgb 13.2 L Hct 36.7 L MCV 87.8 MCH 32 MCHC 36.0 RDW 13.2 Plt Count 199 D MPV 10.2 Neut % (Auto) 67.4 Lymph % (Auto) 17.4 L [place] % (Auto) 11.1 Eos % (Auto) 3.4 Baso % (Auto) 0.3 Neut # (Auto) 4.8 Lymph # (Auto) 1.2 L [place] # (Auto) 0.8 Eos # (Auto) 0.2 Baso # (Auto) 0.0 Immature Gran % 0.4 Nucleated RBC % 0.0 Immature Gran # 0.03 Nucleated RBCs # 0.00 INR PT Patient/Control Mix Circ Anticoag PTT Sodium 143 Potassium 3.6 Chloride 109 H Carbon Dioxide 25 Anion Gap 12.6 BUN 9 Creatinine 0.80 GFR Calculation 110 BUN/Creatinine Ratio 11.00 Glucose 105 POC Glucose 221 H Calculated Osmolality 283.0 Calcium 8.4 L Magnesium Total Bilirubin 1.20 H AST 14 ALT 26 Alkaline Phosphatase 63 Troponin I Total Protein 6.1 L Albumin 3.3 L Globulin 2.8 Albumin/Globulin Ratio 1.1 Triglycerides 263 H Cholesterol 160 LDL Cholesterol 88.0 VLDL Cholesterol 52.6 HDL Cholesterol 33 L Heart Disease Risk Ratio 4.85 Lipase 10/31/16 10/31/16 10/31/16 16:57 10:14 10:14 WBC 8.5 RBC 4.75 Hgb 14.9 Hct 41.5 L MCV 87.4 MCH 31 MCHC 35.9 RDW 13.2 Plt Count 269 MPV 9.9 Neut % (Auto) 73.8 Lymph % (Auto) 14.2 L [place] % (Auto) 9.6 Eos % (Auto) 1.5 Baso % (Auto) 0.4 Neut # (Auto) 6.3 Lymph # (Auto) 1.2 L [place] # (Auto) 0.8 Eos # (Auto) 0.1 Baso # (Auto) 0.0 Immature Gran % 0.5 Nucleated RBC % 0.0 Immature Gran # 0.04 Nucleated RBCs # 0.00 INR PT Patient/Control Mix Circ Anticoag PTT Sodium 143 Potassium 3.9 Chloride 108 H Carbon Dioxide 26 Anion Gap 12.9 BUN 11 Creatinine 1.00 GFR Calculation 92 BUN/Creatinine Ratio 11.00 Glucose 156 H POC Glucose Calculated Osmolality 286.0 Calcium 9.0 Magnesium 1.8 Total Bilirubin 1.00 AST 21 ALT 35 Alkaline Phosphatase 80 Troponin I < 0.015 Total Protein 7.4 Albumin 4.1 Globulin 3.3 Albumin/Globulin Ratio 1.2 Triglycerides Cholesterol LDL Cholesterol VLDL Cholesterol HDL Cholesterol Heart Disease Risk Ratio Lipase 189.0 10/31/16 10/31/16 10:14 10:14 WBC RBC Hgb Hct MCV MCH MCHC RDW Plt Count MPV Neut % (Auto) Lymph % (Auto) [place] % (Auto) Eos % (Auto) Baso % (Auto) Neut # (Auto) Lymph # (Auto) [place] # (Auto) Eos # (Auto) Baso # (Auto) Immature Gran % Nucleated RBC % Immature Gran # Nucleated RBCs # INR 1.1 PT Patient/Control Mix 11.3 Circ Anticoag PTT 24.0 Sodium Potassium Chloride Carbon Dioxide Anion Gap BUN Creatinine GFR Calculation BUN/Creatinine Ratio Glucose POC Glucose Calculated Osmolality Calcium Magnesium Total Bilirubin AST ALT Alkaline Phosphatase Troponin I < 0.015 Total Protein Albumin Globulin Albumin/Globulin Ratio Triglycerides Cholesterol LDL Cholesterol VLDL Cholesterol HDL Cholesterol Heart Disease Risk Ratio Lipase - Imaging and Cardiology Cardiology Procedure: report reviewed by me Procedure: Chest x-ray: report reviewed by me DS: Provider Date of admission: 10/31/16 12:35 Primary care physician: ZOË Cadet Attending physician on admission: Michael Solis MD Consults: 10/31/16 15:04 Consult to Cardiac Rehabilitation [CONS] Routine Reason for Cardiac Rehabilitation: Risk Factor Modification Consult Comment: KAMLA Discharging clinician: Tricia Ballard NP Expected date of discharge: 11/01/16
[2016-11-01] MEDS ORDERED: EZETIMIBE 10 MG TABLET PO SCH (09:00)
[2016-11-01] MEDS ORDERED: ASPIRIN EC 81 MG TABLET PO SCH (09:00)
[2016-11-01] MEDS ORDERED: PANTOPRAZOLE 40 MG TABLET PO SCH (09:00)
[2016-11-01] MEDS ORDERED: CLOPIDOGREL 75 MG TABLET PO SCH (09:00)
[2016-11-01] MEDS: CARVEDILOL 6.25 MG TABLET PO SCH (09:24)
== END 2016-11-01 09:42 | disposition home or self-care (01) ==
LOC: N.EDINP 09:33 → N.ED 09:33 → N.EDINP 13:20 → N.TELES 13:33
PROVIDERS: ADMIT Internal Medicine Cardiovascular Disease; ATTEND Internal Medicine Cardiovascular Disease
PROC: CLCCHCL (ICD-10-PCS; 2016-10-31 16:45)

== ENCOUNTER 2020-08-15 22:18 | Inpatient (IN) ==
[2020-08-16] MEDS ORDERED: ACETAMINOPHEN 325 MG TABLET PO PRN (02:57)
[2020-08-16] MEDS ORDERED: GLUCAGON 1 MG VIAL IM PRN (02:57)
[2020-08-16] MEDS ORDERED: DEXTROSE 50% 25 GM/50 ML VIAL IV PRN (02:57)
[2020-08-16 04:15] LABS: Bilirubin,Urine Negative (Negative); Blood, Urine Negative (Negative); Glucose,Urine (UA) Negative (Negative); Hyaline Casts,Urine 12 /LPF (0-3); Ketones,Urine Negative (Negative); Mucus,Urine Occasional /LPF (Occasional); Nitrite,Urine Negative (Negative); Protein,Urine Negative; RBC,Urine 7 /HPF (0-4); Squamous Epithelial Cell,Urine Occasional /HPF (0-10); Urine Appearance CLEAR (Clear); Urine Color Yellow (Yellow); Urine Specific Gravity 1.017 (1.001-1.035); Urine Urobilinogen < 2.0 EU/DL (0.2-1.0); WBC,Urine 5 /HPF (0-6)
[2020-08-16] MEDS ORDERED: SODIUM CHLORIDE 0.9% 1,000 ML IV SCH (05:30)
[2020-08-16 05:54] LABS: Osmolality,Calculated 280.7 MOS/KG (273-304); Potassium 3.6 MMOL/L (3.5-5.1)
[2020-08-16] MEDS ORDERED: HEPARIN 5,000 UNIT/1 ML VIAL SUBCUT SCH (06:00)
[2020-08-16] MEDS: APIXABAN 5 MG TABLET PO SCH ×2 (08:57→21:02)
[2020-08-16] MEDS: CLOPIDOGREL 75 MG TABLET PO SCH (08:57)
[2020-08-16] MEDS: INSULIN LISPRO 100 UNIT/ML SUBCUT SCH ×2 (10:07→17:10)
[2020-08-16] MEDS ORDERED: CARBIDOPA/LEVODOPA 25-100 MG TABLET PO ONE (21:00)
[2020-08-17 05:46] LABS: Basophils % 0.4 % (0.0-0.8); Eosinophils # 0.4 10*3/uL (0.0-0.87); Eosinophils % 4.8 % (0.00-10.9); Hematocrit 34.8 VOL% (42.0-52.0); Hemoglobin 12.2 GM/DL (14.0-18.0); Immature Granulocytes % 0.5 %; Immature Granulocytes Absolute 0.04 #; Lymphocytes # 1.3 10*3/uL (1.4-4.0); Lymphocytes % 17.1 % (21.2-54.2); Mean Corpuscular HGB Conc 35.1 GM/DL (32-36); Neutrophils % 65.2 % (38.7-73.9); Platelet Count 230 T/CUMM (130-400); Red Blood Count 3.91 MC/CUMM (3.8-5.5); Red Cell Distribution Width 13.7 % (9.3-17.3); White Blood Count 7.8 T/CUMM (4-12)
[2020-08-17 06:23] LABS: Calcium 8.9 MG/DL (8.5-10.1); Osmolality,Calculated 277.5 MOS/KG (273-304); Potassium 3.3 MMOL/L (3.5-5.1)
[2020-08-17] MEDS: INSULIN LISPRO 100 UNIT/ML SUBCUT SCH ×2 (07:40→17:06)
[2020-08-17] MEDS ORDERED: POTASSIUM CHLORIDE 20 MEQ TABLET PO ONE (08:15)
[2020-08-17] MEDS: APIXABAN 5 MG TABLET PO SCH ×2 (08:25→21:36)
[2020-08-17] MEDS: CLOPIDOGREL 75 MG TABLET PO SCH (08:25)
[2020-08-17] MEDS: CARBIDOPA/LEVODOPA 25-100 MG TABLET PO SCH ×4 (08:25→17:06)
[2020-08-17] MEDS ORDERED: MAGNESIUM SULF RIDER 2 GM in PREMIX 1 EACH IV PRN (08:52)
[2020-08-17] MEDS ORDERED: MAGNESIUM SULF RIDER 4 GM in PREMIX 1 EACH IV PRN (08:52)
[2020-08-17] MEDS: POTASSIUM CHLORIDE 20 MEQ TABLET PO SCH ×2 (10:21→21:35)
[2020-08-17] MEDS: MAGNESIUM OXIDE 400 MG TABLET PO SCH ×2 (10:21→21:36)
[2020-08-17] MEDS ORDERED: TUBERCULIN SKIN TEST 0.1 ML SYRINGE INTRADERM ONE (11:55)
[2020-08-18 06:03] LABS: Basophils % 0.4 % (0.0-0.8); Eosinophils # 0.4 10*3/uL (0.0-0.87); Eosinophils % 5.2 % (0.00-10.9); Hematocrit 34.3 VOL% (42.0-52.0); Immature Granulocytes % 0.4 %; Immature Granulocytes Absolute 0.03 #; Lymphocytes # 1.3 10*3/uL (1.4-4.0); Lymphocytes % 16.3 % (21.2-54.2); Mean Corpuscular Volume 89.6 FL (87-102); Monocytes % 11.7 % (1.7-12.7); Platelet Count 232 T/CUMM (130-400); Red Blood Count 3.83 MC/CUMM (3.8-5.5); Red Cell Distribution Width 13.8 % (9.3-17.3); White Blood Count 7.7 T/CUMM (4-12)
[2020-08-18 06:15] LABS: Calcium 8.8 MG/DL (8.5-10.1); Osmolality,Calculated 275.8 MOS/KG (273-304); Potassium 4.3 MMOL/L (3.5-5.1)
[2020-08-18] MEDS: CARBIDOPA/LEVODOPA 25-100 MG TABLET PO SCH ×3 (08:30→16:17)
[2020-08-18] MEDS: MAGNESIUM OXIDE 400 MG TABLET PO SCH ×2 (08:30→20:32)
[2020-08-18] MEDS: APIXABAN 5 MG TABLET PO SCH (08:30)
[2020-08-18] MEDS: CLOPIDOGREL 75 MG TABLET PO SCH (08:30)
[2020-08-18] MEDS: POTASSIUM CHLORIDE 20 MEQ TABLET PO SCH ×2 (08:31→20:32)
[2020-08-18] MEDS: INSULIN LISPRO 100 UNIT/ML SUBCUT SCH ×2 (09:54→16:05)
[2020-08-19 05:37] LABS: Basophils % 0.5 % (0.0-0.8); Eosinophils # 0.6 10*3/uL (0.0-0.87); Eosinophils % 7.3 % (0.00-10.9); Hematocrit 34.5 VOL% (42.0-52.0); Hemoglobin 12.1 GM/DL (14.0-18.0); Immature Granulocytes % 0.7 %; Immature Granulocytes Absolute 0.05 #; Lymphocytes # 1.2 10*3/uL (1.4-4.0); Lymphocytes % 15.2 % (21.2-54.2); Mean Corpuscular HGB Conc 35.1 GM/DL (32-36); Mean Corpuscular Volume 88.2 FL (87-102); Mean Platelet Volume 10.6 FL (9.6-12.0); Monocytes % 11.5 % (1.7-12.7); Neutrophils % 64.8 % (38.7-73.9); Platelet Count 228 T/CUMM (130-400); Red Blood Count 3.91 MC/CUMM (3.8-5.5); Red Cell Distribution Width 13.7 % (9.3-17.3); White Blood Count 7.6 T/CUMM (4-12)
[2020-08-19 06:00] LABS: Calcium 8.8 MG/DL (8.5-10.1); Osmolality,Calculated 276.8 MOS/KG (273-304); Potassium 3.9 MMOL/L (3.5-5.1)
[2020-08-19] MEDS: MAGNESIUM OXIDE 400 MG TABLET PO SCH ×2 (08:59→21:25)
[2020-08-19] MEDS: POTASSIUM CHLORIDE 20 MEQ TABLET PO SCH ×2 (08:59→21:25)
[2020-08-19] MEDS: CARBIDOPA/LEVODOPA 25-100 MG TABLET PO SCH ×3 (08:59→16:22)
[2020-08-19] MEDS: INSULIN LISPRO 100 UNIT/ML SUBCUT SCH ×2 (09:00→16:23)
[2020-08-20 05:51] LABS: Basophils # 0.1 10*3/uL (0.0-0.2); Basophils % 0.6 % (0.0-0.8); Eosinophils # 0.7 10*3/uL (0.0-0.87); Eosinophils % 8.5 % (0.00-10.9); Hematocrit 35.6 VOL% (42.0-52.0); Hemoglobin 12.3 GM/DL (14.0-18.0); Immature Granulocytes % 0.8 %; Immature Granulocytes Absolute 0.07 #; Lymphocytes # 1.5 10*3/uL (1.4-4.0); Lymphocytes % 18.1 % (21.2-54.2); Mean Corpuscular HGB Conc 34.6 GM/DL (32-36); Mean Corpuscular Volume 90.1 FL (87-102); Mean Platelet Volume 10.8 FL (9.6-12.0); Monocytes % 11.4 % (1.7-12.7); Neutrophils % 60.6 % (38.7-73.9); Platelet Count 239 T/CUMM (130-400); Red Blood Count 3.95 MC/CUMM (3.8-5.5); White Blood Count 8.4 T/CUMM (4-12)
[2020-08-20 06:06] LABS: Calcium 9.1 MG/DL (8.5-10.1); Osmolality,Calculated 282.4 MOS/KG (273-304); Potassium 4.1 MMOL/L (3.5-5.1)
[2020-08-20] MEDS: INSULIN LISPRO 100 UNIT/ML SUBCUT SCH (09:06)
[2020-08-20] MEDS: CARBIDOPA/LEVODOPA 25-100 MG TABLET PO SCH ×2 (09:40→13:16)
[2020-08-20] MEDS: MAGNESIUM OXIDE 400 MG TABLET PO SCH (09:40)
[2020-08-20] MEDS: POTASSIUM CHLORIDE 20 MEQ TABLET PO SCH (09:40)
[2020-08-20 12:23] VITALS: BP 132/75
== END 2020-08-20 13:47 | disposition swing bed (61) | DRG 312 ==
LOC: SUATTDRO 08-16 01:46 → N.TELEN 08-16 01:46 → INTOOBSV 08-16 01:46
PROVIDERS: ADMIT Internal Medicine; ATTEND Hospitalist